=== PATIENT | male | born 1970 | race Caucasian/White ===

== ENCOUNTER 2022-01-02 15:56 | Emergency (ER) | payer OTHER, SELFPAY ==
[2022-01-02 16:02] VITALS: BP 133/79; PULSE 91; RESP 16; TEMP 36.9; O2SAT 98
[2022-01-02] MEDS: TETANUS,DIPHTHERIA,AC PERTUSSIS ADULT (0.5 ML) BOOSTRIX IM (16:08)
--- NOTE | 2022-01-02 16:09 | ED.WOUNDLAC ---
HPI - Wound/Laceration General Chief Complaint: Wound/Laceration Stated Complaint: STEPPED ON A NAIL Time Seen by Provider: 01/02/22 16:03 Source: patient Mode of arrival: ambulatory Limitations: no limitations History of Present Illness HPI narrative: Patient presents today complaining of a puncture wound to the bottom of his left heel that was sustained approximately 30 minutes prior to exam at home. The puncture wound did go through his shoe prior to puncturing his foot. The nail was dirty. He is not up-to-date on his tetanus vaccine. Related Data Allergies Allergy/AdvReac Type Severity Reaction Status Date / Time No Known Allergies Allergy Mild Unverified 01/02/22 16:04 Review of Systems Review of Systems: CONSTITUTIONAL: Denies body aches, fever, chills, or sweats. EYES: Denies visual changes, redness, or discharge. ENT: Denies rhinorrhea, congestion, sore throat, or otalgia. CARDIOVASCULAR: Denies chest pain, palpitations, or edema. RESPIRATORY: Denies cough or dyspnea. GASTROINTESTINAL: Denies abdominal pain, nausea, vomiting, or diarrhea. GENITOURINARY: Denies dysuria or hematuria. SKIN: Denies rash, itching. + Puncture wound to foot MUSCULOSKELETAL: Denies back pain, joint pain, or myalgia. NEUROLOGIC: Denies headache, numbness, tingling, or weakness. PSYCH: Denies depression or anxiety. [facility] Social History Social History Smoking status: Never smoker Alcohol intake: current Comments At time of signature, I have reviewed and agree with nursing past medical, surgical, social and family history unless otherwise noted. Please see nursing chart for further information. There is no relevant family history pertinent to the presenting complaint Exam Narrative: GENERAL: Well-appearing, well-nourished, and in no acute distress. HEAD: Normocephalic, atraumatic. EYES: EOMI. No redness or drainage. Conjunctivae normal. ENT: Mucous membranes pink and moist. NECK: Normal AROM. CHEST: No respiratory distress. EXTREMITIES: Normal range of motion. No edema. SKIN: Warm, dry, no rash. Capillary refill normal. Normal skin turgor. NEURO: No focal deficits. Alert and oriented x3. Gait steady.+ Puncture wound to plantar aspect left heel. Distal sensation intact and capillary refill normal. Pedal pulse normal. Full range of motion of ankle and all toes. PSYCH: Normal affect. No signs of depression or anxiety. Course Course Level of Care: Express Care Visit Vital Signs Vital signs: Vital Signs Temperature 98.4 F 01/02/22 16:02 Pulse Rate 91 01/02/22 16:02 Respiratory Rate 16 01/02/22 16:02 Blood Pressure 133/79 01/02/22 16:02 Pulse Oximetry 98 01/02/22 16:02 Oxygen Delivery Room Air 01/02/22 16:02 Temperature 98.4 F 01/02/22 16:02 Pulse Rate 91 01/02/22 16:02 Respiratory Rate 16 01/02/22 16:02 Blood Pressure 133/79 01/02/22 16:02 Pulse Oximetry 98 01/02/22 16:02 Oxygen Delivery Room Air 01/02/22 16:02 Reviewed. Pt has been instructed to follow up with his PCP regarding his elevated blood pressure today. MDM - Wound/Laceration Differential Diagnosis Differential diagnosis: Likely laceration, abscess, avulsion of skin and other (Puncture wound, cellulitis) Critical Care Time Critical Care Time Critical Care Time: No Discharge Plan Discharge Clinical Impression: Puncture wound of foot Qualifiers: Encounter type: initial encounter Laterality: left Qualified Code(s): S91.332A - Puncture wound without foreign body, left foot, initial encounter Patient Disposition: Home, Self-Care Condition: Stable Instructions: Antibiotic Form, Puncture Wound in the Foot (ED) Additional Instructions: Soak the foot daily in warm water and Betadine to keep the wound clean. Keep covered with a Band-Aid until healed. Take the Levaquin as prescribed. Go to the ER immediately if you develop any worsening symptom
== END 2022-01-02 16:24 | disposition home or self-care (01) ==
PROVIDERS: Emergency Provider Nurse Practitioner
DX: S91.332A Puncture wound without foreign body, left foot, initial encounter (principal); Z23 Encounter for immunization; W45.0XXA Nail entering through skin, initial encounter
CPT/HCPCS: 90471; 90715; 99213; G0463